=== PATIENT | male | born 1990 | race Hispanic/Latino ===

== ENCOUNTER 2022-07-03 15:17 | Emergency (ER) | payer OTHER ==
[2022-07-03] MEDS ORDERED: Zofran 4 MG/2 ML VIAL ONE (15:24)
[2022-07-03] MEDS: Zofran 4 MG/2 ML VIAL IV ONE (15:27)
[2022-07-03] MEDS: Sodium Chloride 0.9% 1000 ML 1,000 ML IV STA ×2 (15:27→16:32)
[2022-07-03 15:30] LABS: Absolute Neutrophil Ct (ANC) 5.16 x10^3/uL (1.4-6.9); Basophil (Absolute #) 0.04 x10^3/uL (0-0.4); Eosinophil % 1.6 % (0.00-5.0); Eosinophil (Absolute #) 0.14 x10^3/uL (0-0.5); Hematocrit 42.3 % (42-50); Hemoglobin 14.6 g/dL (12.5-18.0); Lymphocyte (Absolute #) 2.65 x10^3/uL (1.0-4.6); Mean Cell Volume 81.2 fL (78-100); Mean Corpuscular Hgb Concent. 34.5 g/dL (32-36); Mean Platelet Volume 10.8 fL (7.5-11.0); Monocyte (Absolute #) 0.81 x10^3/uL (0.0-1.3); Monocytes % 9.2 % (0.0-12.0); Neutrophil % 58.2 % (36.0-66.0); Platelet Count 309 x10^3/uL (150-450); Red Blood Count 5.21 x10^6/uL (4.1-5.6); White Blood Count 8.8 x10^3/uL (4.0-10.5)
[2022-07-03 15:49] LABS: INR 0.97 (0.8-3.0); PROTIME 10.3 SECONDS (9.4-12.5); PTT 26.6 SECONDS (25.1-36.5)
[2022-07-03 15:57] LABS: ALBUMIN 4.9 g/dL (3.5-5.0); ALKALINE PHOSPHATASE 83 U/L (38-126); ANION GAP 17.4 MEQ/L (5-15); BLOOD UREA NITROGEN 14 mg/dL (9-20); CHLORIDE 105 mmol/L (98-107); Calcium 10.1 mg/dL (8.4-10.2); Carbon Dioxide 20 mmol/L (22-30); Creatinine 1 1.06 mg/dL (0.66-1.25); EST GLOMERULAR FILTRATION RATE > 60.0 ML/MIN; Glucose 91 mg/dL (74-106); MAGNESIUM 1.9 mg/dL (1.6-2.3); Potassium 3.8 mmol/L (3.5-5.1); SGOT/AST 47 U/L (17-59); SGPT/ALT 63 U/L (0-50); SODIUM 138 mmol/L (137-145); TROPONIN < 0.012 ng/mL (0.000-0.034); Total Protein 8.5 g/dL (6.3-8.2)
--- NOTE | 2022-07-03 16:16 | XRAY ---
Indication: Heat exhaustion. Diaphoresis. Comparison: None Portable chest demonstrates normal heart, lungs, and bony thorax.
[2022-07-03 16:18] LABS: Appearance CLEAR (CLEAR); Bilirubin NEGATIVE (NEGATIVE); Glucose NEGATIVE (NEGATIVE); Hyaline Casts 0-2 /LPF (0-2); Ketones NEGATIVE (NEGATIVE); Mucus SLIGHT /HPF (NEGATIVE); Nitrite NEGATIVE (NEGATIVE); Protein,Urine Dip NEGATIVE (Negative); RBC 0-2 /HPF (0-2); RBC NEGATIVE Ery/ul (0-5); Urobilinogen 0.2 mg/dL (0-1); WBC 0-2 /HPF (0-5)
[2022-07-03 16:19] LABS: Dipstick done @ ? MAIN LAB; Urine Cultured Indicated? NO
[2022-07-03 16:29] LABS: Amphetamine,Urine NEGATIVE (NEGATIVE); Barbiturate,Urine NEGATIVE (NEGATIVE); Benzodiazepine,Urine NEGATIVE (NEGATIVE); Methadone,Urine NEGATIVE (NEGATIVE); Opiate,Urine NEGATIVE (NEGATIVE); PCP,Urine NEGATIVE (NEGATIVE); THC,Urine NEGATIVE (NEGATIVE)
[2022-07-03] MEDS ORDERED: Sodium Chloride 0.9% 1000 ML 1,000 ML ONE ×2 (16:31)
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
[2022-07-03 18:55] VITALS: BP 128/73; PULSE 70
[2022-07-04 01:27] VITALS: O2SAT 98
== END 2022-07-03 18:58 | disposition home or self-care (01) ==
LOC: ED 15:17
DX: I45.10 Unspecified right bundle-branch block (principal); R11.2 Nausea with vomiting, unspecified; R61 Generalized hyperhidrosis; E78.5 Hyperlipidemia, unspecified; Z79.899 Other long term (current) drug therapy
CPT/HCPCS: 36415; 71045; 80053; 80307; 81015; 83735; 84484; 85025; 85610; 85730; 93005; 96360; 96361; 96374; 99284; J2405